=== PATIENT | female | born 1935 ===

== ENCOUNTER → 2022-08-09 | Outpatient (CLI) | payer MEDICARE ==
[~2022-08-09] MED LIST: ASPI-1522 PO; CITA10TA99 PO; CLON0.5T4 PO; LOSA25TA41 PO; OMEP20 PO
[2022-08-09 10:26] VITALS: BP 124/75
== END | disposition home or self-care (01) ==
LOC: SRCNTR 10:17
PROVIDERS: ATTEND Internal Medicine
DX: J98.11 Atelectasis (principal); G20 Parkinson's disease; G70.9 Myoneural disorder, unspecified; Z86.16 Personal history of COVID-19
CPT/HCPCS: G0463